=== PATIENT | female | born 1955 | race Caucasian/White ===

== ENCOUNTER 2017-12-13 00:27 | Inpatient (IN) | payer MEDICAID, OTHER ==
[2017-12-13] MEDS: ONDANSETRON 4 MG INJ IV (03:25)
[2017-12-13] MEDS: SOD CHLORIDE 0.9% 500 ML IV (03:25)
[2017-12-13] MEDS: morphine 4 MG/ML VIAL IV (03:26)
[2017-12-13 03:27] LABS: ABNORMAL IP MESSAGE 1; HEMATOCRIT 38.6 % (37.0-47.0); HEMOGLOBIN 13.3 g/dl (12.0-16.0); MEAN CORPUSCULAR HEMOGLOBIN 30.4 pg (29.0-33.0); MEAN CORPUSCULAR HGB CONC 34.5 g/dl (32.0-37.0); MEAN CORPUSCULAR VOLUME 88.3 fl (82.0-101.0); MEAN PLATELET VOLUME 10.1 fl (7.4-10.4); PLATELET COUNT 262 10^3/UL (140-415); RED BLOOD COUNT 4.37 10^6/ul (4.20-5.40); RED CELL DISTRIBUTION WIDTH 13.1 % (11.5-14.5)
[2017-12-13 03:27] LABS: WHITE BLOOD COUNT 19.8 10^3/ul (4.8-10.8)
[2017-12-13 03:28] LABS: POSITIVE DIFF @See below
[2017-12-13 03:29] LABS: ADD MAN DIFF? YES
[2017-12-13 03:50] LABS: ADD UMIC YES; UR ASCORBIC ACID NEGATIVE (NEGATIVE); UR BILIRUBIN (Dip) NEGATIVE (NEGATIVE); UR BLOOD (Dip) 1+ mg/dL (NEGATIVE); UR CLARITY CLEAR (CLEAR); UR COLOR YELLOW (YELLOW); UR GLUCOSE (Dip) NEGATIVE (NEGATIVE); UR KETONES (Dip) NEGATIVE (NEGATIVE); UR LEUKOCYTE ESTERASE (Dip) NEGATIVE Leu/ul (NEGATIVE); UR NITRITE (Dip) NEGATIVE (NEGATIVE); UR RBC 5 /HPF (0-5); UR SPECIFIC GRAVITY (Dip) 1.013 (1.003-1.030); UR TOTAL PROTEIN (Dip) NEGATIVE (NEGATIVE); UR UROBILINOGEN (Dip) NEGATIVE (NEGATIVE); UR WBC 2 /HPF (0-5)
[2017-12-13 03:57] LABS: ALANINE AMINOTRANSFERASE 110 IU/L (13-69); ALBUMIN 4.2 g/dl (3.3-4.9); ALKALINE PHOSPHATASE 163 IU/L (42-121); ANION GAP 18 (8-16); ASPARTATE AMINO TRANSFERASE 97 IU/L (15-46); BILIRUBIN,INDIRECT 1.1 mg/dl (0-1.1); BILIRUBIN,TOTAL 1.1 mg/dl (0.2-1.3); BLOOD UREA NITROGEN 10 mg/dl (7-20); CALCIUM 9.1 mg/dl (8.4-10.2); CARBON DIOXIDE 24 mmol/L (21-31); CHLORIDE 102 mmol/L (97-110); CREATININE 0.57 mg/dl (0.44-1.00); GLUCOSE 103 mg/dl (70-220); LIPASE 63 U/L (23-300); POTASSIUM 3.4 mmol/L (3.5-5.1); SODIUM 141 mmol/L (135-144)
[2017-12-13] MEDS: AZITHROMYCIN 500MG/NS (PMX) 250 ML IV (04:00)
[2017-12-13 04:06] LABS: TROPONIN-I < 0.012 ng/ml (0.00-0.12)
[2017-12-13] MEDS: CEFTRIAXONE 1 GM/50 ML (PMX) 50 ML IVPB (05:00)
[2017-12-13 05:27] LABS: ANISOCYTOSIS 1+ (0-0); BAND NEUTROPHILS #M 9.7 10^3/ul (0.0-0.6); BAND NEUTROPHILS % (M) 49 % (0-4); LYMPHOCYTES #M 0.1 10^3/ul (0.8-2.9); LYMPHOCYTES % (M) 1 % (15-51); MICROCYTOSIS 1+ (0-0); MONOCYTE #M 1.9 10^3/ul (0.3-0.9); MONOCYTES % (M) 10 % (0-11); PLASMA CELLS #M 0.1 10^3/ul (0.0-0.0); PLASMAC%(M) 1 % (0); PLATELET ESTIMATE NORMAL; POIKILOCYTOSIS 1+ (0-0); POLYCHROMASIA 1+ (0-0); SEG NEUT #M 9.8 10^3/ul (1.6-7.5); SEGMENTED NEUTROPHILS (M) % 40 % (39-77); SMUDGE%M 2 % (0-0)
[2017-12-13 05:42] LABS: LACTIC ACID 1.5 mmol/L (0.5-2.0)
[2017-12-13] MEDS ORDERED: ACETAMINOPHEN 325 MG TAB (07:26)
[2017-12-13] MEDS ORDERED: ONDANSETRON 4 MG INJ IV (07:30)
[2017-12-13] MEDS ORDERED: NACL 0.9% 3 ML SYG IV (07:30)
[2017-12-13] MEDS: SOD CHLORIDE 0.9% 1,000 ML IV ×3 (07:51→21:16)
[2017-12-13] MEDS: ACETAMINOPHEN 325 MG TAB PO ×2 (07:52→14:34)
[2017-12-13] MEDS: LEVOFLOXACIN 750MG/D5W (PMX) 150 ML IVPB (08:06)
[2017-12-13 09:30] LABS: LACTIC ACID 2.5 mmol/L (0.5-2.0)
[2017-12-13 11:57] LABS: LACTIC ACID 1.4 mmol/L (0.5-2.0)
[2017-12-13] MEDS: ALBUTEROL 0.083% (NEB) 2.5 MG/3 ML AMP HHN ×2 (13:52→20:20)
[2017-12-13] MEDS: HYDROCODONE/APAP (5/325) TAB PO (15:57)
[2017-12-14] MEDS: ACETAMINOPHEN 325 MG TAB PO ×2 (04:23→11:52)
[2017-12-14 06:11] LABS: HEMATOCRIT 32.3 % (37.0-47.0); HEMOGLOBIN 10.9 g/dl (12.0-16.0); MEAN CORPUSCULAR HEMOGLOBIN 30.5 pg (29.0-33.0); MEAN CORPUSCULAR HGB CONC 33.7 g/dl (32.0-37.0); MEAN CORPUSCULAR VOLUME 90.5 fl (82.0-101.0); MEAN PLATELET VOLUME 10.3 fl (7.4-10.4); PLATELET COUNT 233 10^3/UL (140-415); RED BLOOD COUNT 3.57 10^6/ul (4.20-5.40); RED CELL DISTRIBUTION WIDTH 13.3 % (11.5-14.5)
[2017-12-14 06:11] LABS: WHITE BLOOD COUNT 17.5 10^3/ul (4.8-10.8)
[2017-12-14] MEDS: SOD CHLORIDE 0.9% 1,000 ML IV ×4 (06:30→20:59)
[2017-12-14 06:32] LABS: LACTIC ACID 0.9 mmol/L (0.5-2.0)
[2017-12-14 06:39] LABS: FREE T4 (FREE THYROXINE) 1.06 ng/dl (0.78-2.44)
[2017-12-14 06:40] LABS: ALANINE AMINOTRANSFERASE 57 IU/L (13-69); ALKALINE PHOSPHATASE 104 IU/L (42-121); ANION GAP 12 (8-16); ASPARTATE AMINO TRANSFERASE 34 IU/L (15-46); BILIRUBIN,INDIRECT 1.1 mg/dl (0-1.1); BILIRUBIN,TOTAL 1.1 mg/dl (0.2-1.3); BLOOD UREA NITROGEN 5 mg/dl (7-20); CARBON DIOXIDE 25 mmol/L (21-31); CHLORIDE 111 mmol/L (97-110); CHOL/HDL RATIO 3.2 RATIO; CHOLESTEROL 126 mg/dl (100-200); CREATININE 0.52 mg/dl (0.44-1.00); GLUCOSE 91 mg/dl (70-220); HDL CHOLESTEROL 39 mg/dl (35-98); LDL CHOLESTEROL,CALCULATED 70 mg/dl; MAGNESIUM 1.8 mg/dl (1.7-2.5); POTASSIUM 3.5 mmol/L (3.5-5.1); SODIUM 144 mmol/L (135-144); TRIGLYCERIDES 84 mg/dl (0-149)
[2017-12-14 07:09] LABS: THYROID STIMULATING HORMONE 0.518 MIU/L (0.465-4.680)
[2017-12-14 07:16] LABS: POSITIVE DIFF @See below
[2017-12-14 07:17] LABS: ADD MAN DIFF? YES
[2017-12-14 08:10] LABS: HEMOGLOBIN A1C 5.4 % (0-5.9)
[2017-12-14 08:15] LABS: B-TYPE NATRIURETIC PEPTIDE 1330 PG/ML (0-125)
[2017-12-14] MEDS: ALBUTEROL 0.083% (NEB) 2.5 MG/3 ML AMP HHN ×3 (08:39→22:44)
[2017-12-14] MEDS: LEVOFLOXACIN 750MG/D5W (PMX) 150 ML IVPB (08:53)
[2017-12-14] MEDS: ENOXAPARIN 40 MG/0.4 ML SYG SC (08:55)
[2017-12-14 09:45] LABS: ANISOCYTOSIS 1+ (0-0); BAND NEUTROPHILS #M 2.4 10^3/ul (0.0-0.6); BAND NEUTROPHILS % (M) 14 % (0-4); LYMPHOCYTES #M 2.2 10^3/ul (0.8-2.9); LYMPHOCYTES % (M) 13 % (15-51); MICROCYTOSIS 1+ (0-0); MONOCYTE #M 0.1 10^3/ul (0.3-0.9); MONOCYTES % (M) 1 % (0-11); PLATELET ESTIMATE NORMAL; POIKILOCYTOSIS 2+ (0-0); POLYCHROMASIA 3+ (0-0); SEG NEUT #M 13.2 10^3/ul (1.6-7.5); SEGMENTED NEUTROPHILS (M) % 73 % (39-77); SMUDGE%M 1 % (0-0)
[2017-12-15] MEDS ORDERED: VITAMIN A & D 5 GM OINT PACKET TOP (01:42)
[2017-12-15] MEDS: SOD CHLORIDE 0.9% 1,000 ML IV ×2 (03:00→06:11)
[2017-12-15] MEDS: ACETAMINOPHEN 325 MG TAB PO ×3 (03:31→19:48)
[2017-12-15 06:01] LABS: ADD MAN DIFF? NO
[2017-12-15 06:17] LABS: ALANINE AMINOTRANSFERASE 76 IU/L (13-69); ALBUMIN 3.2 g/dl (3.3-4.9); ALBUMIN/GLOBULIN RATIO 0.96; ALKALINE PHOSPHATASE 135 IU/L (42-121); ANION GAP 18 (8-16); ASPARTATE AMINO TRANSFERASE 76 IU/L (15-46); BILIRUBIN,INDIRECT 0.8 mg/dl (0-1.1); BILIRUBIN,TOTAL 0.8 mg/dl (0.2-1.3); BLOOD UREA NITROGEN 4 mg/dl (7-20); CALCIUM 8.8 mg/dl (8.4-10.2); CARBON DIOXIDE 20 mmol/L (21-31); CHLORIDE 112 mmol/L (97-110); CREATININE 0.49 mg/dl (0.44-1.00); GLUCOSE 87 mg/dl (70-220); SODIUM 146 mmol/L (135-144); TOTAL PROTEIN 6.5 g/dl (6.1-8.1)
[2017-12-15 06:39] LABS: WHITE BLOOD COUNT 11.6 10^3/ul (4.8-10.8)
[2017-12-15 06:39] LABS: BASOPHILS % 0.3 % (0.0-2.0); EOSINOPHILS # 0.2 10^3/ul (0.0-0.5); EOSINOPHILS % 1.3 % (0.0-7.0); HEMATOCRIT 35.5 % (37.0-47.0); HEMOGLOBIN 12.2 g/dl (12.0-16.0); LYMPHOCYTES # 1.8 10^3/ul (0.8-2.9); LYMPHOCYTES % 15.7 % (15.0-51.0); MEAN CORPUSCULAR HEMOGLOBIN 30.4 pg (29.0-33.0); MEAN CORPUSCULAR HGB CONC 34.4 g/dl (32.0-37.0); MEAN CORPUSCULAR VOLUME 88.5 fl (82.0-101.0); MEAN PLATELET VOLUME 10.5 fl (7.4-10.4); MONOCYTE # 0.4 10^3/ul (0.3-0.9); MONOCYTES % 3.4 % (0.0-11.0); NEUTROPHIL # 9.1 10^3/ul (1.6-7.5); NEUTROPHILS % 78.6 % (39.0-77.0); PLATELET COUNT 264 10^3/UL (140-415); RED BLOOD COUNT 4.01 10^6/ul (4.20-5.40); RED CELL DISTRIBUTION WIDTH 13.2 % (11.5-14.5)
[2017-12-15 07:33] LABS: PHOSPHORUS 3.2 mg/dl (2.5-4.9)
[2017-12-15 07:33] LABS: MAGNESIUM 1.8 mg/dl (1.7-2.5)
[2017-12-15] MEDS: ALBUTEROL 0.083% (NEB) 2.5 MG/3 ML AMP HHN ×3 (08:56→20:46)
[2017-12-15] MEDS: LEVOFLOXACIN 750MG/D5W (PMX) 150 ML IVPB (09:09)
[2017-12-15] MEDS: ENOXAPARIN 40 MG/0.4 ML SYG SC (09:10)
[2017-12-15] MEDS: HYDROCODONE/APAP (5/325) TAB PO (13:41)
[2017-12-16 05:19] LABS: ADD MAN DIFF? NO
[2017-12-16 05:30] LABS: BASOPHILS % 0.3 % (0.0-2.0); EOSINOPHILS # 0.2 10^3/ul (0.0-0.5); EOSINOPHILS % 2.5 % (0.0-7.0); HEMATOCRIT 37.4 % (37.0-47.0); HEMOGLOBIN 12.8 g/dl (12.0-16.0); MEAN CORPUSCULAR HEMOGLOBIN 30.5 pg (29.0-33.0); MEAN CORPUSCULAR HGB CONC 34.2 g/dl (32.0-37.0); MONOCYTE # 0.7 10^3/ul (0.3-0.9); MONOCYTES % 7.8 % (0.0-11.0); NEUTROPHIL # 5.9 10^3/ul (1.6-7.5); NEUTROPHILS % 66.2 % (39.0-77.0); PLATELET COUNT 341 10^3/UL (140-415)
[2017-12-16 05:30] LABS: WHITE BLOOD COUNT 8.9 10^3/ul (4.8-10.8)
[2017-12-16 05:57] LABS: PHOSPHORUS 4.3 mg/dl (2.5-4.9)
[2017-12-16 05:57] LABS: MAGNESIUM 1.8 mg/dl (1.7-2.5)
[2017-12-16 06:37] LABS: ALANINE AMINOTRANSFERASE 115 IU/L (13-69); ALBUMIN 3.8 g/dl (3.3-4.9); ALBUMIN/GLOBULIN RATIO 1.08; ALKALINE PHOSPHATASE 145 IU/L (42-121); ANION GAP 19 (8-16); ASPARTATE AMINO TRANSFERASE 138 IU/L (15-46); BILIRUBIN,INDIRECT 0.5 mg/dl (0-1.1); BILIRUBIN,TOTAL 0.5 mg/dl (0.2-1.3); BLOOD UREA NITROGEN 7 mg/dl (7-20); CALCIUM 9.2 mg/dl (8.4-10.2); CARBON DIOXIDE 24 mmol/L (21-31); CHLORIDE 107 mmol/L (97-110); CREATININE 0.55 mg/dl (0.44-1.00); GLUCOSE 93 mg/dl (70-220); SODIUM 146 mmol/L (135-144); TOTAL PROTEIN 7.3 g/dl (6.1-8.1)
[2017-12-16] MEDS: ALBUTEROL 0.083% (NEB) 2.5 MG/3 ML AMP HHN ×2 (07:46→14:00)
[2017-12-16] MEDS: LEVOFLOXACIN 750MG/D5W (PMX) 150 ML IVPB (08:52)
[2017-12-16] MEDS: ENOXAPARIN 40 MG/0.4 ML SYG SC (09:26)
[2017-12-16] MEDS: ACETAMINOPHEN 325 MG TAB PO (10:13)
[2017-12-16 11:38] LABS: HAAIG REFLEX REFLEX FILED
[2017-12-16 12:41] LABS: HEPATITIS B SURFACE ANTIGEN NEGATIVE (NEGATIVE)
[2017-12-16 12:59] LABS: HEPATITIS B CORE ANTIBODY NEGATIVE (NEGATIVE); HEPATITIS C VIRAL ANTIBODY NEGATIVE (NEGATIVE)
== END 2017-12-16 13:55 | disposition home or self-care (01) | DRG 871 ==
LOC: E/R 00:27 → MS2 04:55
DX: A41.9 Sepsis, unspecified organism (principal); J18.9 Pneumonia, unspecified organism; E87.2 Acidosis; J20.9 Acute bronchitis, unspecified; A08.4 Viral intestinal infection, unspecified; K57.30 Diverticulosis of large intestine without perforation or abscess without bleeding
CPT/HCPCS: 36415; 71045; 74176; 80053; 80061; 81001; 83036; 83605; 83690; 83735; 83880; 84100; 84439; 84443; 84484; 85025; 86704; 86709; 86803; 87040; 87045; 87340; 87400; 93005; 93306; 94640; 94664; 96365; 96375; 99285-25